=== PATIENT | male | born 1995 | race Caucasian/White ===

== ENCOUNTER 2021-02-20 13:22 | Emergency (ER) | payer SELFPAY ==
[~2021-02-20] VITALS: Ht 167.6 cm; Wt 68.0 kg
[2021-02-20 13:33] VITALS: BP 118/65
[2021-02-20] MEDS ORDERED: KETOROLAC 60 MG/2 ML VIAL IM ONE (14:35)
[2021-02-20] MEDS ORDERED: IBUP-2213 PO (15:06)
[2021-02-20] MEDS ORDERED: ONDA8TAB87 PO (15:06)
[2021-02-20 15:40] VITALS: BP 115/62
--- NOTE | 2021-02-20 15:43 | NUR ---
Patient discharged with v/s stable. Written and verbal after care instructions given and explained. Patient alert, oriented and verbalized understanding of instructions. Ambulatory with steady gait. All questions addressed prior to discharge. ID band removed. Patient advised to follow up with PMD. Rx of IBU, ZOFRAN given. Patient educated on indication of medication including possible reaction and side effects. Opportunity to ask questions provided and answered.
--- NOTE | 2021-02-21 14:57 | NUR ---
urine in dirty utility
== END 2021-02-20 15:40 | disposition home or self-care (01) ==
LOC: MED 13:22
DX: R07.89 Other chest pain (principal); R51.9 Headache, unspecified; R00.2 Palpitations
CPT/HCPCS: 93005; 96372; 99283; J1885